=== PATIENT | female | born 1950 | race African-American/Black ===

== ENCOUNTER 2016-07-03 15:01 | Emergency (ER) | payer OTHER ==
[2016-07-03 15:12] VITALS: BP 132/57
--- NOTE | 2016-07-03 15:22 | UC ---
Knee Pain HPI - HPI Summary HPI Summary: right medial knee and lower leg pain after flying 2 weeks ago - History of Current Complaint Chief Complaint: UCLowerExtremity Stated Complaint: KNEE INJURY Time Seen by Provider: 07/03/16 15:10 Hx Obtained From: Patient ?: No Onset/Duration: Sudden Onset, Lasting Weeks - 2, Still Present Severity Initially: Moderate Severity Currently: Moderate Character: Aching, Stiffness Aggravating Factor(s): Movement, Weight Bearing Alleviating Factor(s): Nothing Associated Signs And Symptoms: Positive: Negative Able to Bear Weight: Yes - Allergies/Home Medications Allergies/Adverse Reactions: Allergies Allergy/AdvReac Type Severity Reaction Status Date / Time Hydrocodone Allergy Intermediate facial Verified 07/03/16 15:13 swelling Papaya Enzyme Allergy Mild Rash Verified 07/03/16 15:13 Home Medications: Home Medications Blood Pressure Med? Name 07/03/16 [History] PMH/Surg Hx/FS Hx/Imm Hx Previously Healthy: No Cardiovascular History Of: Reports: Hypertension Denies: Pacemaker/ICD Cancer History Of: Denies: Breast Cancer - Surgical History Surgical History: Yes Surgery Procedure, Year, and Place: csection, - Family History Known Family History: Positive: None Family History: no reported cardio vascular issues in lineage - Social History Occupation: Employed Full-time Lives: With Family Alcohol Use: Occasionally Substance Use Type: None Smoking Status (MU): Never Smoked Tobacco Review of Systems Constitutional: Negative Skin: Negative Eyes: Negative ENT: Negative Respiratory: Negative Cardiovascular: Negative Gastrointestinal: Negative Genitourinary: Negative Motor: Negative Neurovascular: Negative Musculoskeletal: Arthralgia - right mid leg-medial, Myalgia - right mid leg medial Neurological: Negative Psychological: Negative All Other Systems Reviewed And Are Negative: Yes Physical Exam Triage Information Reviewed: Yes Appearance: Well-Appearing, No Pain Distress, Well-Nourished Vital Signs: Initial Vital Signs Temp 98.2 F 07/03/16 15:09 Pulse 73 07/03/16 15:09 Resp 18 07/03/16 15:09 BP 132/57 07/03/16 15:09 Pulse Ox 99 07/03/16 15:09 Vital Signs Reviewed: Yes Eye Exam: Normal Eyes: Positive: Conjunctiva Clear ENT Exam: Normal ENT: Positive: Normal ENT inspection, Hearing grossly normal. Negative: Trismus , Muffled/hoarse voice Dental Exam: Normal Neck exam: Normal Neck: Positive: Supple, Nontender, No Lymphadenopathy Respiratory Exam: Normal Respiratory: Positive: Chest non-tender, Lungs clear, Normal breath sounds, No respiratory distress, No accessory muscle use Cardiovascular Exam: Normal Cardiovascular: Positive: RRR, No Murmur, Pulses Normal, Brisk Capillary Refill Musculoskeletal Exam: Normal Musculoskeletal: Positive: Strength Intact, ROM Intact, No Edema Neurological Exam: Normal Neurological: Positive: Alert, Muscle Tone Normal Psychological Exam: Normal Skin Exam: Normal Diagnostics - Laboratory Diagnostic Studies Completed/Ordered: complex cyst---consistant with a bakers cyst on ultrasound Knee Pain Course/Dx - Course Course Of Treatment: jamil wrap, cane, ibuprofen follow with orthopedic doctor - Differential Dx/Diagnosis Differential Diagnosis/HQI/PQRI: Bursitis, DVT, Fracture (Closed), Sprain, Strain Provider Diagnoses: Right Knee Bakers Cyst Discharge - Discharge Plan Condition: Stable Disposition: HOME Patient Education Materials: Ibuprofen (By mouth), How to Choose and Use a Cane (GEN), Bakers Cyst (ED) Referrals: Brian Roth MD [Primary Care Provider] - Danuta Bearden MD [Medical Doctor] - 5 Days
--- NOTE | 2016-07-03 16:33 | RAD ---
HISTORY: Lower leg and knee pain, right COMPARISONS: None relevant TECHNIQUE: Multiple transverse and longitudinal ultrasound images were obtained of the right lower extremity from the level of the common femoral vein inferiorly through to the infrapopliteal veins using grayscale, color Doppler, and spectral Doppler imaging with and without compression and with augmentation. Comparison images were obtained of the contralateral common femoral vein. FINDINGS: VEINS: The venous system of the right lower extremity is compressible throughout its course, with normal flow on color Doppler imaging and normal response to augmentation on spectral Doppler imaging. SOFT TISSUES: Unremarkable. OTHER FINDINGS: There is a complex cystic lesion of the popliteal fossa measuring 2.9 x 2.9 x 5.2 cm in size IMPRESSION: 1. NO RIGHT LOWER EXTREMITY DEEP VEIN THROMBOSIS 2. CYSTIC LESION OF THE POPLITEAL FOSSA SUGGESTIVE OF A TEJADA'S CYST
== END 2016-07-03 17:10 | disposition home or self-care (01) ==
LOC: UCEAST 15:01
DX: M71.21 Synovial cyst of popliteal space [Baker], right knee (principal); M25.561 Pain in right knee; M79.661 Pain in right lower leg; I10 Essential (primary) hypertension; Z88.5 Allergy status to narcotic agent
CPT/HCPCS: 99213; G0463

== ENCOUNTER 2016-09-05 18:21 | Emergency (ER) | payer OTHER ==
[2016-09-05 18:27] VITALS: BP 140/66
--- NOTE | 2016-09-05 19:25 | UC ---
Respiratory Complaint HPI - HPI Summary HPI Summary: nasal drainage and congestion, post nasal drip sore throat and cough no fever--- has been worsening over the past 6-7 days - History of Current Complaint Chief Complaint: UCRespiratory Stated Complaint: URI Time Seen by Provider: 09/05/16 19:14 Hx Obtained From: Patient ?: No Onset/Duration: Sudden Onset, Lasting Days - 7, Still Present, Worse Since - daily Timing: Constant Severity Initially: Mild Severity Currently: Moderate Pain Intensity: 7 Pain Scale Used: 0-10 Numeric Character: Cough: Nonproductive Aggravating Factors: Nothing Alleviating Factors: Nothing Associated Signs And Symptoms: Positive: URI, Nasal Congestion, Sinus Discomfort - Allergies/Home Medications Allergies/Adverse Reactions: Allergies Allergy/AdvReac Type Severity Reaction Status Date / Time Hydrocodone Allergy Intermediate facial Verified 09/05/16 18:33 swelling Papaya Enzyme Allergy Mild Rash Verified 09/05/16 18:33 Home Medications: Home Medications Phenol 1.4% [place]* [Chloroseptic Throat [place]*] 09/05/16 [History Confirmed 05/23] Pseudoephedrine-Guaifenesin [Mucinex D Maximum Strengt 120-1200 mg] 09/05/16 [ History] PMH/Surg Hx/FS Hx/Imm Hx Previously Healthy: No Cardiovascular History: Hypertension - Surgical History Surgical History: Yes Surgery Procedure, Year, and Place: csection, - Family History Known Family History: Positive: None Family History: no reported cardio vascular issues in lineage - Social History Occupation: Employed Full-time Lives: With Family Alcohol Use: Occasionally Substance Use Type: None Smoking Status (MU): Never Smoked Tobacco Review of Systems Constitutional: Negative Skin: Negative Eyes: Negative ENT: Sore Throat, Nasal Discharge Respiratory: Cough Cardiovascular: Negative Gastrointestinal: Negative Genitourinary: Negative Motor: Negative Neurovascular: Negative Musculoskeletal: Negative Neurological: Negative Psychological: Negative All Other Systems Reviewed And Are Negative: Yes Physical Exam Triage Information Reviewed: Yes Appearance: No Pain Distress, Well-Nourished, Ill-Appearing - mild Vital Signs: Initial Vital Signs Temp 98.7 F 09/05/16 18:24 Pulse 71 09/05/16 18:24 Resp 18 09/05/16 18:24 BP 140/66 09/05/16 18:24 Pulse Ox 100 09/05/16 18:24 Vital Signs Reviewed: Yes Eye Exam: Normal Eyes: Positive: Conjunctiva Clear ENT Exam: Normal ENT: Positive: Normal ENT inspection, Hearing grossly normal, Pharynx normal, Nasal congestion, Nasal drainage. Negative: TMs normal, Tonsillar swelling, Tonsillar exudate, Trismus, Muffled/hoarse voice Dental Exam: Normal Neck exam: Normal Neck: Positive: Supple, Nontender, No Lymphadenopathy Respiratory Exam: Normal Respiratory: Positive: Chest non-tender, Lungs clear, Normal breath sounds, No respiratory distress, No accessory muscle use Cardiovascular Exam: Normal Cardiovascular: Positive: RRR, No Murmur, Pulses Normal, Brisk Capillary Refill Musculoskeletal Exam: Normal Musculoskeletal: Positive: Strength Intact, ROM Intact, No Edema Neurological Exam: Normal Neurological: Positive: Alert, Muscle Tone Normal Psychological Exam: Normal Skin Exam: Normal UC Diagnostic Evaluation - Laboratory O2 Sat by Pulse Oximetry: 100 Respiratory Course/Dx - Course Course Of Treatment: flonase augmentin, increase fluids, follow with pcp - Differential Dx/Diagnosis Differential Diagnosis/HQI/PQRI: Asthma, Bronchitis, Laryngitis, Lower Resp Infection, Sinusitis, Tuberculosis Provider Diagnoses: Acute Sinusitis Discharge - Discharge Plan Condition: Stable Disposition: HOME Prescriptions: Amoxicillin/Clavulanate TAB* [Augmentin TAB 875*] 875 mg PO BID #20 tab Fluticasone NASAL SPRAY 50MCG* [Flonase NASAL SPRAY 50MCG*] 2 spray BOTH NARES DAILY #1 btl Patient Education Materials: Sinusitis (ED), How to Use Nasal [place] (ED) Referrals: Brian Roth MD [Primary Care Provider] - If Needed
== END 2016-09-05 19:33 | disposition home or self-care (01) ==
LOC: UCEAST 18:21
DX: J01.90 Acute sinusitis, unspecified (principal)
CPT/HCPCS: 99212; G0463